=== PATIENT | female | born 1995 | race Caucasian/White ===

== ENCOUNTER 2020-09-25 12:40 | Outpatient (CLI) | payer OTHER | END 2020-09-25 12:41 | disposition home or self-care (01) | LOC: SCSMRI 12:40 → EDSEX 12:40 → SCSMRI 12:41 | PROVIDERS: ATTEND Physician Assistant | DX: M23.92 Unspecified internal derangement of left knee (principal); S83.512A Sprain of anterior cruciate ligament of left knee, initial encounter; S80.02XA Contusion of left knee, initial encounter; R60.0 Localized edema; S83.242A Other tear of medial meniscus, current injury, left knee, initial encounter ==

== ENCOUNTER 2020-12-20 13:58 | Outpatient (CLI) | payer OTHER ==
[2020-12-20 15:15] LABS: #Eosinphils 0.1 10x3/uL (0.0-0.5); #Monocytes 0.9 10x3/uL (0.0-1.1); #Neutrophils 7.7 10x3/uL (1.5-8.4); %Basophils 0.3 % (0.0-2.0); %Eosinophils 0.9 % (0.0-6.0); %Lymphocytes 24.1 % (18.0-47.0); %Monocytes 7.7 % (0.0-10.0); %Neutrophils 66.7 % (40.0-75.0); Hemoglobin 14.2 g/dL (12.0-15.5); Mean Corpuscular HGB CONC 32.6 g/dL (32.0-36.0); Mean Corpuscular Hemoglobin 29.5 pg (27.0-33.0); Mean Corpuscular Volume 90.2 fl (81.6-98.3); Mean Platelet Volume 10.2 fl (7.4-10.4); Platelet Count 299 10x3/uL (150-450); RBC Distribution Width 12.5 % (11.5-14.5); Red Blood Cell (RBC) Count 4.82 10x6/uL (3.90-5.03); White Blood Cell (WBC) Count 11.6 10x3/uL (3.5-10.5)
[2020-12-20 15:16] LABS: BHCG - Serum Negative (NEGATIVE); Pregs Control Background? CLEAR/WHITE (CLR/WHITE); Pregs Control Bar Appear? YES (CONTROL BAR)
[2020-12-21 16:41] LABS: SARS-CoV-2 PCR by NAA Not Detected (NotDetected)
== END 2020-12-20 13:59 | disposition home or self-care (01) ==
LOC: LABBT 13:58
PROVIDERS: ATTEND Orthopaedic Surgery
DX: Z01.812 Encounter for preprocedural laboratory examination (principal); Z20.822 Contact with and (suspected) exposure to COVID-19
CPT/HCPCS: 84703; 85025; U0003; U0005

== ENCOUNTER 2020-12-25 09:31 | Observation (INO) | payer OTHER ==
[2020-12-23 15:24] VITALS: BMI 32.9
[2020-12-25] MEDS ORDERED: Midazolam HCl 2 mg/2 ml Vial ONE (10:30)
[2020-12-25] MEDS ORDERED: Fentanyl 100 MCG/2 ML VIAL ONE ×2 (10:30→12:15)
[2020-12-25] MEDS ORDERED: HYDROcodone/Acetaminophen 7.5/325 mg Tablet PO PRN ×2 (11:07→11:08)
[2020-12-25] MEDS ORDERED: Fentanyl 100 MCG/2 ML VIAL IV PRN (11:07)
[2020-12-25] MEDS ORDERED: Zolpidem Tartrate 5 MG TAB PO PRN (11:15)
[2020-12-25] MEDS ORDERED: Ondansetron PF 4 MG/2 ML Vial IVP PRN (11:15)
[2020-12-25] MEDS ORDERED: traMADol HCl 50 MG TAB PO PRN ×2 (11:15)
[2020-12-25] MEDS ORDERED: Promethazine HCl 25 MG/ML VIAL IM PRN ×2 (11:15→14:30)
[2020-12-25] MEDS ORDERED: Ropivacaine 0.2% 550 ML 550 ML NERVE BLCK SCH (11:15)
[2020-12-25] MEDS ORDERED: Ondansetron PF 4 MG/2 ML Vial ONE (12:30)
[2020-12-25] MEDS ORDERED: Dexamethasone 20 MG/5 ML VIAL ONE (12:30)
[2020-12-25] MEDS ORDERED: PROPOFOL 200 MG/20 ML VIAL ONE (12:30)
[2020-12-25] MEDS ORDERED: Lidocaine 1% PF 5 ML VIAL ONE (12:30)
[2020-12-25] MEDS ORDERED: diphenhydrAMINE 50 MG CAP PO PRN (12:49)
[2020-12-25] MEDS ORDERED: Methocarbamol 500 MG TAB PO PRN (12:49)
[2020-12-25] MEDS ORDERED: Bisacodyl 10 MG SUPP PR PRN (12:49)
[2020-12-25] MEDS ORDERED: Acetaminophen 500 MG TAB PO PRN (12:49)
[2020-12-25] MEDS ORDERED: Morphine 2 MG/ML VIAL SLOW IVP PRN (12:49)
[2020-12-25] MEDS ORDERED: Milk Of Magnesia 30 ML UDCUP PO PRN (12:49)
[2020-12-25] MEDS ORDERED: Promethazine HCl 25 MG/ML VIAL IVPB PRN (14:30)
[2020-12-25] MEDS ORDERED: Ketorolac Tromethamine 30 MG/ML VIAL IVP PRN (14:30)
[2020-12-25] MEDS ORDERED: Ondansetron HCl/PF 4 MG/2 ML Vial IVP PRN (14:30)
[2020-12-25] MEDS ORDERED: Meperidine HCl/PF 25 MG/ML VIAL SLOW IVP PRN (14:30)
[2020-12-25] MEDS: Ketorolac Tromethamine 30 MG/ML VIAL IVP SCH ×2 (17:39→18:14)
[2020-12-25] MEDS: Dextrose 5 %-0.45 % NaCl 1,000 ML IV SCH (18:13)
[2020-12-25] MEDS: CEFAZOLIN 2 GM in Premix Bag 1 BAG IVPB SCH (18:13)
[2020-12-25] MEDS: Famotidine 20 MG TAB PO SCH (20:47)
[2020-12-26] MEDS: Ketorolac Tromethamine 30 MG/ML VIAL IVP SCH ×2 (00:33→06:00)
[2020-12-26] MEDS: Dextrose 5 %-0.45 % NaCl 1,000 ML IV SCH (02:32)
[2020-12-26] MEDS: CEFAZOLIN 2 GM in Premix Bag 1 BAG IVPB SCH (02:34)
[2020-12-26 08:22] VITALS: BP 109/73; TEMP 98.6
[2020-12-26] MEDS: Famotidine 20 MG TAB PO SCH (10:20)
[2020-12-26] MEDS ORDERED: Ondansetron ODT 4 MG TAB PO PRN (12:32)
== END 2020-12-26 12:58 | disposition home or self-care (01) ==
LOC: SDC 09:31 → SURG B 12:53
PROVIDERS: ADMIT Orthopaedic Surgery; ATTEND Orthopaedic Surgery
PROC: 0MRP47Z Replacement of Left Knee Bursa and Ligament with Autologous Tissue Substitute, Percutaneous Endoscopic Approach (ICD-10-PCS; principal; 2020-12-25)
PROC: 3E0T3BZ Introduction of Anesthetic Agent into Peripheral Nerves and Plexi, Percutaneous Approach (ICD-10-PCS; 2020-12-25)
DX: S83.512A Sprain of anterior cruciate ligament of left knee, initial encounter (principal); M23.8X2 Other internal derangements of left knee; S83.282A Other tear of lateral meniscus, current injury, left knee, initial encounter; X58.XXXA Exposure to other specified factors, initial encounter; Y99.0 Civilian activity done for income or pay
CPT/HCPCS: 96365; 96375; 96376; A4306; C1713; G0378; J0690; J1100; J1885; J2250; J2405; J2704; J2795; J3010; Q0162